=== PATIENT | female | born 1970 | race Caucasian/White ===

== ENCOUNTER 2018-11-18 11:10 | Emergency (ER) | payer MEDICAID ==
[~2018-11-18] VITALS: Ht 147.3 cm; Wt 43.0 kg
[~2018-11-18 11:10] MED LIST: ALBU18HF2 INH; ALBU8.5H8 IH; PRED20TA PO; SPIIN INH
[2018-11-18 11:24] VITALS: BP 100/67
--- NOTE | 2018-11-18 12:30 | NUR ---
PT HAS NURSE BLASTING HELPER AT BEDSIDE WITH PT, WILL HAVE TECH PLACE PT IN [place]OWN AND HAVE BELONGINGS LIST MADE AND LOCKED UP.
[2018-11-18 12:46] LABS: URINE HCG NEGATIVE (NEG)
[2018-11-18 12:48] LABS: CLARITY,URINE SLIGHTLY CLOUDY (Clear); COLOR,URINE YELLOW (Yellow); GLUCOSE, URINE NEGATIVE (Neg); KETONES,URINE NEGATIVE (Neg); LEUKOCYTE ESTERASE ,URINE MODERATE (Neg); NITRITES, URINE NEGATIVE (Neg); OCCULT BLOOD,URINE NEGATIVE (Neg); PH,URINE 5.5 (4.8-8.0); PROTEIN,URINE NEGATIVE (Neg); UROBILINOGEN,URINE 0.2 E.U/dL (0.2-1.0)
[2018-11-18 12:58] LABS: UA COLLECTION TYPE CLN CATCH MIDSTREAM; URINE AMPHETAMINE SCREEN POSITIVE (Neg); URINE BARBITUATE SCREEN NEGATIVE (Neg); URINE BENZODIAZEPINES SCREEN NEGATIVE (Neg); URINE CANNABINOID SCREEN NEGATIVE (Neg); URINE COCAINE SCREEN NEGATIVE (Neg); URINE METHADONE SCREEN NEGATIVE (Neg); URINE OPIATE SCREEN NEGATIVE (Neg); URINE PHENCYCLIDINE SCREEN NEGATIVE (Neg)
[2018-11-18 13:00] LABS: BACTERIA,URINE 1+ /HPF (Neg); RBC,URINE NONE SEEN /HPF (0-2)
[2018-11-18 13:01] LABS: MUCUS STRANDS MANY /LPF (Neg); SQUAMOUS EPITHELIAL CELL,UR MANY /LPF (FEW); YEAST FEW /HPF (NEGATIVE)
[2018-11-18 13:02] LABS: HYALINE CASTS 0-3 /LPF (NEGATIVE)
--- NOTE | 2018-11-18 13:45 | NUR ---
Ankush PETTY notified pt needs to be evaluated, and he informed me that they will be over in approx 30 min.
[2018-11-18] MEDS ORDERED: haloperidol lactate 5mg/ml inj IM ONE (14:10)
[2018-11-18] MEDS ORDERED: LORazepam 2 mg/ml vial IM ONE (14:10)
[2018-11-18] MEDS ORDERED: diphenhydrAMINE 50 mg/ml inj IM ONE (14:10)
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
[2018-11-18 14:20] LABS: BASOPHILS % (AUTO) 0.5 % (0-1); EOSINOPHILS # (AUTO) 0.1 X10'3 (0-0.9); EOSINOPHILS % (AUTO) 0.6 % (0-6); HEMATOCRIT 40.5 % (35.0-45.0); HEMOGLOBIN 13.8 g/dl (12.0-16.0); LYMPHOCYTES # (AUTO) 1.4 X10'3 (1.1-4.8); MEAN CORPUSCULAR HGB CONC 34.2 g/dL (33.0-36.5); MEAN CORPUSCULAR VOLUME 93.6 FL (78-98); MEAN PLATELET VOLUME 7.5 FL (7.4-10.4); MONOCYTES # (AUTO) 1.1 X10'3 (0-0.9); MONOCYTES % (AUTO) 10.6 % (2-12); NEUTROPHILS # (AUTO) 7.4 X10'3 (1.8-7.7); NEUTROPHILS % (AUTO) 74.3 % (42-75); PLATELET COUNT 242 X10'3 (140-440); RED BLOOD COUNT 4.32 X10'6 (4.20-5.60); RED CELL DISTRIBUTION WIDTH 13.5 % (11.5-14.5); WHITE BLOOD COUNT 9.9 X10'3 (4.5-11.0)
[2018-11-18 14:30] LABS: ALANINE AMINOTRANSFERASE 20 U/L (12-78); ALBUMIN 3.6 G/DL (3.4-5.0); ALBUMIN/GLOBULIN RATIO 0.9 (1.1-1.5); ALKALINE PHOSPHATASE 112 IU/L (46-116); ANION GAP 6 (8-16); ASPARTATE AMINO TRANSFERASE 14 U/L (10-37); BILIRUBIN,TOTAL 0.5 MG/DL (0.1-1.0); BLOOD UREA NITROGEN 6 MG/DL (7-18); BUN/CREATININE RATIO 8.6 (6.6-38.0); CALCIUM 9.3 MG/DL (8.5-10.1); CHLORIDE 102 MMOL/L (99-107); GLUCOSE 93 MG/DL (70-104); POTASSIUM 4.8 MMOL/L (3.5-5.1); SODIUM 136 MMOL/L (135-145); TOTAL CARBON DIOXIDE 28.2 MMOL/L (24-32); TOTAL PROTEIN 7.6 G/DL (6.4-8.2); eGFR 89 ML/MIN
[2018-11-18 14:37] LABS: ETHANOL < 0.010 GM/DL (0.0-0.010)
== END 2018-11-18 14:51 ==
LOC: ER 11:11
DX: F15.10 Other stimulant abuse, uncomplicated (principal); J44.9 Chronic obstructive pulmonary disease, unspecified; Z79.899 Other long term (current) drug therapy
CPT/HCPCS: 36415; 80053; 80305; 80320; 81001; 81025; 84443; 85025; 96372; 99283; J2060; J1200; J1630

== ENCOUNTER 2019-07-22 00:21 | Emergency (ER) | payer MEDICAID ==
[~2019-07-22] VITALS: Ht 147.3 cm; Wt 50.4 kg
[~2019-07-22 00:21] MED LIST changes: -PRED20TA PO
[2019-07-22] MEDS ORDERED: albuterol 2.5 MG/3 ML nebule NEB ONE (00:45)
[2019-07-22] MEDS ORDERED: albuterol 2.5 MG/3 ML nebule CONTNEB PRN (00:55)
[2019-07-22] MEDS ORDERED: methylPREDNISolone sod succ 125mg/2ml vial IV ONE (00:55)
[2019-07-22] MEDS: albuterol 2.5 MG/3 ML nebule CONTNEB PRN ×2 (01:03→02:29)
[2019-07-22 01:04] LABS: BASOPHILS # (AUTO) 0.1 X10'3 (0-0.2); BASOPHILS % (AUTO) 0.5 % (0-1); EOSINOPHILS % (AUTO) 0.3 % (0-6); HEMATOCRIT 38.8 % (35.0-45.0); HEMOGLOBIN 13.4 g/dl (12.0-16.0); LYMPHOCYTES # (AUTO) 1.2 X10'3 (1.1-4.8); LYMPHOCYTES % (AUTO) 8.9 % (21-51); MEAN CORPUSCULAR HEMOGLOBIN 33.3 PG (27.0-31.0); MEAN CORPUSCULAR HGB CONC 34.5 g/dL (33.0-36.5); MEAN CORPUSCULAR VOLUME 96.5 FL (78-98); MONOCYTES # (AUTO) 1.5 X10'3 (0-0.9); MONOCYTES % (AUTO) 11.2 % (2-12); NEUTROPHILS # (AUTO) 10.3 X10'3 (1.8-7.7); NEUTROPHILS % (AUTO) 79.1 % (42-75); PLATELET COUNT 203 X10'3 (140-440); RED BLOOD COUNT 4.02 X10'6 (4.20-5.60); RED CELL DISTRIBUTION WIDTH 13.6 % (11.5-14.5)
[2019-07-22 01:18] LABS: CHLORIDE 102 MMOL/L (99-107); GLUCOSE 149 MG/DL (70-104); POTASSIUM 3.7 MMOL/L (3.5-5.1); SODIUM 138 MMOL/L (135-145); TOTAL CARBON DIOXIDE 28.8 MMOL/L (24-32)
[2019-07-22 01:19] LABS: ALANINE AMINOTRANSFERASE 21 U/L (12-78); ALBUMIN 3.8 G/DL (3.4-5.0); ALBUMIN/GLOBULIN RATIO 0.9 (1.1-1.5); ALKALINE PHOSPHATASE 93 IU/L (46-116); ANION GAP 7 (8-16); ASPARTATE AMINO TRANSFERASE 16 U/L (10-37); BILIRUBIN,TOTAL 0.8 MG/DL (0.1-1.0); BLOOD UREA NITROGEN 9 MG/DL (7-18); BUN/CREATININE RATIO 9.6 (6.6-38.0); CALCIUM 8.6 MG/DL (8.5-10.1); CREATININE 0.94 MG/DL (0.40-0.90); MAGNESIUM 1.8 MG/DL (1.5-2.4); TOTAL PROTEIN 7.9 G/DL (6.4-8.2); eGFR 63 ML/MIN
[2019-07-22] MEDS ORDERED: ALBU6.7H9 INH (01:59)
[2019-07-22] MEDS ORDERED: PRED20TA PO (01:59)
[2019-07-22] MEDS ORDERED: TIOT18CA3 PO (02:09)
[2019-07-22 03:45] VITALS: BP 105/46
== END 2019-07-22 03:52 | disposition home or self-care (01) ==
LOC: ER 00:22
DX: J43.9 Emphysema, unspecified (principal); F17.200 Nicotine dependence, unspecified, uncomplicated; R19.7 Diarrhea, unspecified; Z79.899 Other long term (current) drug therapy
CPT/HCPCS: 36415; 71045; 80053; 83735; 85025; 87502; 87503; 93005; 94644; 94645; 96374; 99285; J2930; 94640; 94760

== ENCOUNTER 2019-07-24 07:33 | Emergency (ER) | payer MEDICAID ==
[~2019-07-24] VITALS: Ht 147.3 cm; Wt 49.5 kg
[~2019-07-24 07:33] MED LIST changes: +ALBU6.7H9 INH; +PRED20TA PO; +TIOT18CA3 PO
[2019-07-24] MEDS ORDERED: ipratropium/albuterol 3ml nebule ONE (07:41)
[2019-07-24] MEDS ORDERED: methylPREDNISolone sod succ 125mg/2ml vial IV ONE (07:45)
[2019-07-24] MEDS ORDERED: ipratropium/albuterol 3ml nebule NEB ONE ×2 (07:45→09:45)
[2019-07-24 08:02] LABS: BASOPHILS % (AUTO) 0.1 % (0-1); EOSINOPHILS % (AUTO) 0 % (0-6); HEMATOCRIT 33.9 % (35.0-45.0); HEMOGLOBIN 11.6 g/dl (12.0-16.0); LYMPHOCYTES # (AUTO) 0.8 X10'3 (1.1-4.8); LYMPHOCYTES % (AUTO) 7.8 % (21-51); MEAN CORPUSCULAR HEMOGLOBIN 33.1 PG (27.0-31.0); MEAN CORPUSCULAR HGB CONC 34.2 g/dL (33.0-36.5); MEAN CORPUSCULAR VOLUME 96.9 FL (78-98); MONOCYTES % (AUTO) 18.7 % (2-12); NEUTROPHILS # (AUTO) 7.7 X10'3 (1.8-7.7); NEUTROPHILS % (AUTO) 73.4 % (42-75); PLATELET COUNT 219 X10'3 (140-440); RED CELL DISTRIBUTION WIDTH 13.7 % (11.5-14.5); WHITE BLOOD COUNT 10.5 X10'3 (4.5-11.0)
[2019-07-24 08:18] LABS: ALANINE AMINOTRANSFERASE 87 U/L (12-78); ALBUMIN 3.6 G/DL (3.4-5.0); ALKALINE PHOSPHATASE 87 IU/L (46-116); ANION GAP 9 (8-16); ASPARTATE AMINO TRANSFERASE 59 U/L (10-37); BILIRUBIN,TOTAL 0.2 MG/DL (0.1-1.0); BLOOD UREA NITROGEN 17 MG/DL (7-18); CALCIUM 8.6 MG/DL (8.5-10.1); CHLORIDE 103 MMOL/L (99-107); CREATININE 0.85 MG/DL (0.40-0.90); GLUCOSE 103 MG/DL (70-104); POTASSIUM 3.8 MMOL/L (3.5-5.1); SODIUM 140 MMOL/L (135-145); TOTAL CARBON DIOXIDE 28.5 MMOL/L (24-32); TOTAL PROTEIN 7.1 G/DL (6.4-8.2); eGFR 71 ML/MIN
[2019-07-24 08:41] LABS: PLATELET ESTIMATE NORMAL; TOTAL CELLS COUNTED 100; TOXIC GRANULATION 1+
[2019-07-24] MEDS ORDERED: levoFLOXACIN-Levaquin 750MG/D5 150 ML IV ONE (09:35)
[2019-07-24] MEDS ORDERED: LEVO750T21 PO (09:35)
[2019-07-24 11:16] VITALS: BP 134/81
[2019-07-24] MEDS ORDERED: ALBU18HF2 INH (16:31)
[2019-07-24] MEDS ORDERED: PRAV20TA4 PO (16:31)
[2019-07-24] MEDS ORDERED: DIPH25CA46 PO (16:31)
[2019-07-24] MEDS ORDERED: NICO-687 TP (16:31)
[2019-07-24] MEDS ORDERED: ACLI400A3 PO (16:31)
[2019-07-24] MEDS ORDERED: ELVI1TAB3 PO (16:31)
[2019-07-24] MEDS ORDERED: IBUP-1985 PO (16:31)
[2019-07-25] MEDS ORDERED: BENZ-16 PO (14:02)
[2019-07-25] MEDS ORDERED: BUDE10.22 INH (14:02)
[2019-07-25] MEDS ORDERED: PRED10TA23 PO (14:02)
[2019-07-25] MEDS ORDERED: LEVO750T46 PO (14:02)
[2019-07-25] MEDS ORDERED: IPRA3AMP31 IH (14:02)
== END 2019-07-24 11:18 | disposition home or self-care (01) ==
LOC: ER 07:33
DX: J44.1 Chronic obstructive pulmonary disease with (acute) exacerbation (principal); F17.200 Nicotine dependence, unspecified, uncomplicated; Z79.899 Other long term (current) drug therapy
CPT/HCPCS: 36415; 71046; 80053; 83605; 83880; 84145; 84484; 85025; 87040; 93005; 94640; 96365; 96375; 99284; J1956; J2930; 94760

== ENCOUNTER 2019-07-24 15:30 | Inpatient (IN) | payer MEDICAID ==
[~2019-07-24] VITALS: Ht 147.3 cm; Wt 50.0 kg
[~2019-07-24 15:30] MED LIST changes: +LEVO750T21 PO
[2019-07-24] MEDS ORDERED: ipratropium/albuterol 3ml nebule NEB ONE (15:40)
[2019-07-24] MEDS ORDERED: IBUP-1985 PO (16:31)
[2019-07-24] MEDS ORDERED: DIPH25CA46 PO (16:31)
[2019-07-24] MEDS ORDERED: NICO-687 TP (16:31)
[2019-07-24] MEDS ORDERED: ACLI400A3 PO (16:31)
[2019-07-24] MEDS ORDERED: ALBU18HF2 INH (16:31)
[2019-07-24] MEDS ORDERED: PRAV20TA4 PO (16:31)
[2019-07-24] MEDS ORDERED: ELVI1TAB3 PO (16:31)
[2019-07-24] MEDS ORDERED: ondansetron/PF 4mg/2ml inj IV PRN (16:40)
[2019-07-24] MEDS ORDERED: acetaminophen 325mg tablet PO PRN ×2 (16:40)
[2019-07-24] MEDS ORDERED: methylPREDNISolone sod succ 125mg/2ml vial IV ONE (16:40)
[2019-07-24] MEDS ORDERED: potassium Cl 20 mEq SR tablet PO PRN ×2 (16:40)
[2019-07-24] MEDS ORDERED: acetaminophen 650mg rectal suppository RC PRN (16:40)
[2019-07-24] MEDS ORDERED: mag hydrox/Alum hydrox/simeth 30ml oral suspension PO PRN (16:40)
[2019-07-24] MEDS ORDERED: magnesium 4gm in 100ml NS 100 ML IV PRN (16:40)
[2019-07-24] MEDS ORDERED: potassium CL 10mEq/100ml bag 100 ML IV PRN ×2 (16:40)
[2019-07-24] MEDS ORDERED: HYDROcodone/acetaminophen 10/325mg tab PO PRN (16:40)
[2019-07-24] MEDS ORDERED: magnesium hydroxide 30ml (MOM) UD suspension PO PRN (16:40)
[2019-07-24] MEDS ORDERED: magnesium Cl slow-release 64mg tablet PO PRN (16:40)
[2019-07-24] MEDS ORDERED: diphenhydrAMINE 25mg capsule PO PRN (16:40)
[2019-07-24] MEDS ORDERED: morphine 2 MG/ML inj. syringe IV PRN ×2 (16:40)
[2019-07-24] MEDS ORDERED: HYDROcodone/acetaminophen 5mg/325mg tablet PO PRN (16:40)
[2019-07-24] MEDS ORDERED: magnesium 2GM in 50ml NS 50 ML IV PRN (16:40)
[2019-07-24] MEDS ORDERED: bisacodyl 10mg suppository rectal RC PRN (16:40)
[2019-07-24] MEDS ORDERED: iohexol 350MG/ML 100ml bottle IV ONE (16:55)
--- NOTE | 2019-07-24 17:00 | NUR ---
Patient in room ED 9. I have received report from ZEHRA KNAPP and had the opportunity to ask questions and assume patient care.
[2019-07-24] MEDS: normal saline 1000ml 1,000 ML IV SCH ×2 (17:30→21:51)
--- NOTE | 2019-07-24 17:40 | NUR ---
Pt to CT scan and then to 4016A via wheelchair
[2019-07-24 18:00] VITALS: BP 100/66
--- NOTE | 2019-07-24 18:15 | NUR ---
RECEIVED REPORT FROM DUKE KNAPP AND ASSUMED PATIENT CARE
--- NOTE | 2019-07-24 18:34 | NUR ---
Problems reprioritized. Patient report given, questions answered & plan of care reviewed with BERLIN KNAPP.
[2019-07-24] MEDS: ipratropium/albuterol 3ml nebule NEB SCH ×2 (19:28→23:03)
[2019-07-24] MEDS: K and/or MAG REPLACEMENT MC SCH (20:00)
[2019-07-24] MEDS: methylPREDNISolone sod succ 125mg/2ml vial IV SCH (20:49)
[2019-07-24] MEDS: heparin, porcine 5000 units/ml vial SQ SCH (20:49)
[2019-07-24 22:00] VITALS: BP 107/56
[2019-07-25] MEDS: methylPREDNISolone sod succ 125mg/2ml vial IV SCH ×3 (02:01→13:34)
[2019-07-25] MEDS: ipratropium/albuterol 3ml nebule NEB SCH ×4 (02:55→15:20)
[2019-07-25 06:00] VITALS: BP 107/63
[2019-07-25 06:15] LABS: BASOPHILS % (AUTO) 0.2 % (0-1); EOSINOPHILS % (AUTO) 0 % (0-6); HEMATOCRIT 33.3 % (35.0-45.0); HEMOGLOBIN 11.5 g/dl (12.0-16.0); LYMPHOCYTES # (AUTO) 0.9 X10'3 (1.1-4.8); MEAN CORPUSCULAR HEMOGLOBIN 33.4 PG (27.0-31.0); MEAN CORPUSCULAR HGB CONC 34.5 g/dL (33.0-36.5); MEAN CORPUSCULAR VOLUME 96.9 FL (78-98); MEAN PLATELET VOLUME 8.1 FL (7.4-10.4); MONOCYTES # (AUTO) 0.8 X10'3 (0-0.9); MONOCYTES % (AUTO) 10.2 % (2-12); NEUTROPHILS # (AUTO) 5.8 X10'3 (1.8-7.7); NEUTROPHILS % (AUTO) 77.6 % (42-75); PLATELET COUNT 220 X10'3 (140-440); RED BLOOD COUNT 3.44 X10'6 (4.20-5.60); RED CELL DISTRIBUTION WIDTH 13.3 % (11.5-14.5); WHITE BLOOD COUNT 7.5 X10'3 (4.5-11.0)
--- NOTE | 2019-07-25 06:25 | NUR ---
REPORT GIVEN TO JOEY KNAPP Addendum: 07/25/19 at 0629 by Jacey Stephens RN REPORT GIVEN TO JOSE ANTONIO KNAPP
--- NOTE | 2019-07-25 06:25 | NUR ---
Patient in room ORTHO 4016. I have received report from BERLIN KNAPP and had the opportunity to ask questions and assume patient care.
[2019-07-25 06:40] LABS: ALANINE AMINOTRANSFERASE 62 U/L (12-78); ALBUMIN 3.1 G/DL (3.4-5.0); ALBUMIN/GLOBULIN RATIO 0.9 (1.1-1.5); ALKALINE PHOSPHATASE 79 IU/L (46-116); ANION GAP 8 (8-16); ASPARTATE AMINO TRANSFERASE 19 U/L (10-37); BILIRUBIN,TOTAL 0.2 MG/DL (0.1-1.0); BLOOD UREA NITROGEN 15 MG/DL (7-18); BUN/CREATININE RATIO 18.5 (6.6-38.0); CALCIUM 8.7 MG/DL (8.5-10.1); CHLORIDE 102 MMOL/L (99-107); CHOL/HDL RATIO 2.6 (0.00-4.99); CHOLESTEROL 168 MG/DL (0-200); CREATININE 0.81 MG/DL (0.40-0.90); GLUCOSE 181 MG/DL (70-104); HDL CHOLESTEROL 65 MG/DL (35-60); LDL CHOLESTEROL 70 MG/DL (50-100); MAGNESIUM 2.1 MG/DL (1.5-2.4); PHOSPHORUS 3.7 MG/DL (2.3-4.5); POTASSIUM 3.8 MMOL/L (3.5-5.1); SODIUM 139 MMOL/L (135-145); TOTAL PROTEIN 6.7 G/DL (6.4-8.2); TRIGLYCERIDES 177 MG/DL (20-135); eGFR 75 ML/MIN
[2019-07-25] MEDS: heparin, porcine 5000 units/ml vial SQ SCH (07:26)
[2019-07-25] MEDS: K and/or MAG REPLACEMENT MC SCH (07:33)
[2019-07-25] MEDS ORDERED: nicotine 21mg patch - 24 hr TD SCH (08:00)
[2019-07-25] MEDS ORDERED: levoFLOXACIN-Levaquin 750MG/D5 150 ML IV SCH (08:00)
[2019-07-25] MEDS ORDERED: atorvastatin 10mg tablet PO SCH (08:00)
[2019-07-25 09:01] LABS: URINE HCG NEGATIVE (NEG)
[2019-07-25 09:03] LABS: CLARITY,URINE CLEAR (Clear); COLOR,URINE YELLOW (Yellow); GLUCOSE, URINE NEGATIVE (Neg); KETONES,URINE NEGATIVE (Neg); LEUKOCYTE ESTERASE ,URINE NEGATIVE (Neg); NITRITES, URINE NEGATIVE (Neg); OCCULT BLOOD,URINE LARGE (Neg); PH,URINE 6.5 (4.8-8.0); PROTEIN,URINE NEGATIVE (Neg); UROBILINOGEN,URINE 0.2 E.U/dL (0.2-1.0)
[2019-07-25 09:05] LABS: UA COLLECTION TYPE CLN CATCH MIDSTREAM
[2019-07-25 09:11] LABS: SQUAMOUS EPITHELIAL CELL,UR MANY /LPF (FEW)
[2019-07-25 09:12] LABS: BACTERIA,URINE FEW /HPF (Neg); WBC,URINE 0-4 /HPF (0-4)
[2019-07-25 09:13] LABS: URINE AMPHETAMINE SCREEN NEGATIVE (Neg); URINE BARBITUATE SCREEN NEGATIVE (Neg); URINE BENZODIAZEPINES SCREEN NEGATIVE (Neg); URINE CANNABINOID SCREEN NEGATIVE (Neg); URINE COCAINE SCREEN NEGATIVE (Neg); URINE METHADONE SCREEN NEGATIVE (Neg); URINE OPIATE SCREEN POSITIVE (Neg); URINE PHENCYCLIDINE SCREEN NEGATIVE (Neg)
[2019-07-25 10:00] VITALS: BP 114/68
--- NOTE | 2019-07-25 11:55 | NUR ---
Malnutrition consult received. Patient is eating well so far, 75-100% PO intake, good appetite, no edema, current weight is patient stated and 5 kg more than average documented weights including 45 kg in September 2018, BMI is average. No malnutrition at this time. Will continue to follow per protocol. Addendum: 07/25/19 at [address] Amended: Links added.
[2019-07-25] MEDS: normal saline 1000ml 1,000 ML IV SCH (12:38)
[2019-07-25] MEDS ORDERED: PRED10TA23 PO (14:02)
[2019-07-25] MEDS ORDERED: BENZ-16 PO (14:02)
[2019-07-25] MEDS ORDERED: IPRA3AMP31 IH (14:02)
[2019-07-25] MEDS ORDERED: BUDE10.22 INH (14:02)
[2019-07-25] MEDS ORDERED: LEVO750T46 PO (14:02)
--- NOTE | 2019-07-25 16:00 | NUR ---
PATIENT DISCHARGE SAFELY HOME WITH DAUGHTER. ALL BELONGINGS IN POSSESSION, INCLUDING HOME MEDICATIONS THAT WERE STORED IN PHARMACY. PRESCRIPTIONS CALLED TO LAURYN CHAIDEZ IN [facility] PER PATIENT REQUEST. A NEBULIZER MACHINE WAS DELIVERED TO PATIENT FOR HOME USE. PATIENT VERBALIZES UNDERSTANDING OF ALL DISCHARGE INSTRUCTIONS.
[2019-07-25] MEDS ORDERED: lactobacillus rhamnosus 10,000 MMU CELLS/CAPSULE PO SCH (20:00)
== END 2019-07-25 16:00 | disposition home or self-care (01) | DRG 139 ==
LOC: ER 15:30 → ED HOLD 16:38 → ORTHO 4S 18:50
PROVIDERS: ADMIT Family Medicine; ATTEND Family Medicine
PROC: B32T1ZZ Computerized Tomography (CT Scan) of Left Pulmonary Artery using Low Osmolar Contrast (ICD-10-PCS; principal; 2019-07-24)
PROC: B3201ZZ Computerized Tomography (CT Scan) of Thoracic Aorta using Low Osmolar Contrast (ICD-10-PCS; 2019-07-24)
PROC: B32S1ZZ Computerized Tomography (CT Scan) of Right Pulmonary Artery using Low Osmolar Contrast (ICD-10-PCS; 2019-07-24)
DX: J18.9 Pneumonia, unspecified organism (principal); J96.20 Acute and chronic respiratory failure, unspecified whether with hypoxia or hypercapnia; E78.5 Hyperlipidemia, unspecified; F15.10 Other stimulant abuse, uncomplicated; Z60.2 Problems related to living alone; J44.0 Chronic obstructive pulmonary disease with (acute) lower respiratory infection; F17.210 Nicotine dependence, cigarettes, uncomplicated; J44.1 Chronic obstructive pulmonary disease with (acute) exacerbation; K59.00 Constipation, unspecified; Z21 Asymptomatic human immunodeficiency virus [HIV] infection status; Z80.49 Family history of malignant neoplasm of other genital organs; Z91.19 Patient's noncompliance with other medical treatment and regimen; Z98.51 Tubal ligation status; Z71.6 Tobacco abuse counseling
CPT/HCPCS: 36415; 71275; 80053; 80061; 80305; 81001; 81025; 83036; 83605; 83735; 84100; 85025; 87040; 93306; 94640; 94760; 99285; G0378; J1644; J1956; J2930; J7030; Q9967

== ENCOUNTER 2019-08-02 09:08 | Emergency (ER) | payer MEDICAID ==
[~2019-08-02] VITALS: Ht 147.3 cm; Wt 50.0 kg
[~2019-08-02 09:08] MED LIST changes: +ACLI400A3 PO; -ALBU6.7H9 INH; -ALBU8.5H8 IH; +BENZ-16 PO; +BUDE10.22 INH; +DIPH25CA46 PO; +ELVI1TAB3 PO; +IPRA3AMP31 IH; -LEVO750T21 PO; +LEVO750T46 PO; +NICO-687 TP; +PRAV20TA4 PO; +PRED10TA23 PO; -PRED20TA PO; -SPIIN INH; -TIOT18CA3 PO
[2019-08-02 09:18] VITALS: BP 118/79
== END 2019-08-02 09:43 | disposition home or self-care (01) ==
LOC: ER 09:08
DX: G47.00 Insomnia, unspecified (principal); T38.0X5A Adverse effect of glucocorticoids and synthetic analogues, initial encounter; J44.9 Chronic obstructive pulmonary disease, unspecified; F17.200 Nicotine dependence, unspecified, uncomplicated; Z79.2 Long term (current) use of antibiotics; Z79.899 Other long term (current) drug therapy; Y92.89 Other specified places as the place of occurrence of the external cause
CPT/HCPCS: 99281

== ENCOUNTER 2020-10-19 21:35 | Emergency (ER) | payer MEDICAID ==
[~2020-10-19] VITALS: Ht 149.9 cm; Wt 57.7 kg
[~2020-10-19 21:35] MED LIST changes: -LEVO750T46 PO; -PRED10TA23 PO
[2020-10-19] MEDS ORDERED: ipratropium/albuterol 3ml nebule NEB ONE (22:30)
--- NOTE | 2020-10-19 22:49 | NUR ---
Pt. swabbed for covid, pt. reports she did not like the test and will not answer questions for an assessment.
[2020-10-19] MEDS ORDERED: methylPREDNISolone sod succ 125mg/2ml vial IV ONE (23:05)
[2020-10-19 23:11] LABS: BASOPHILS # (AUTO) 0.1 X10'3 (0-0.2); BASOPHILS % (AUTO) 0.5 % (0-1); EOSINOPHILS % (AUTO) 0.4 % (0-6); HEMOGLOBIN 13.2 g/dl (12.0-16.0); LYMPHOCYTES # (AUTO) 1.5 X10'3 (1.1-4.8); LYMPHOCYTES % (AUTO) 14.4 % (21-51); MEAN CORPUSCULAR HEMOGLOBIN 33.4 PG (27.0-31.0); MEAN CORPUSCULAR VOLUME 101.2 FL (78-98); MEAN PLATELET VOLUME 7.3 FL (7.4-10.4); MONOCYTES # (AUTO) 0.9 X10'3 (0-0.9); MONOCYTES % (AUTO) 8.9 % (2-12); NEUTROPHILS % (AUTO) 75.8 % (42-75); PLATELET COUNT 243 X10'3 (140-440); RED BLOOD COUNT 3.95 X10'6 (4.20-5.60); RED CELL DISTRIBUTION WIDTH 14.2 % (11.5-14.5); WHITE BLOOD COUNT 10.5 X10'3 (4.5-11.0)
[2020-10-19 23:35] LABS: ALANINE AMINOTRANSFERASE 34 U/L (12-78); ALBUMIN 3.6 G/DL (3.4-5.0); ALKALINE PHOSPHATASE 92 IU/L (46-116); ANION GAP 10 (8-16); ASPARTATE AMINO TRANSFERASE 17 U/L (10-37); BILIRUBIN,TOTAL 0.3 MG/DL (0.1-1.0); CALCIUM 9.2 MG/DL (8.5-10.1); CHLORIDE 104 MMOL/L (99-107); CREATININE 0.85 MG/DL (0.40-0.90); GLUCOSE 127 MG/DL (70-104); POTASSIUM 3.4 MMOL/L (3.5-5.1); SODIUM 140 MMOL/L (135-145); TOTAL CARBON DIOXIDE 26.2 MMOL/L (24-32); TOTAL PROTEIN 7.1 G/DL (6.4-8.2); eGFR 71 ML/MIN
[2020-10-19 23:50] LABS: BLOOD UREA NITROGEN 16 MG/DL (7-18); BUN/CREATININE RATIO 18.8 (6.6-38.0)
[2020-10-19] MEDS ORDERED: AZIT-63 PO (23:58)
[2020-10-19] MEDS ORDERED: PRED20TA PO (23:58)
[2020-10-20 00:18] VITALS: BP 123/77
== END 2020-10-20 00:21 | disposition home or self-care (01) ==
LOC: ER 21:36
DX: J44.1 Chronic obstructive pulmonary disease with (acute) exacerbation (principal); Z20.822 Contact with and (suspected) exposure to COVID-19; R05 Cough; R09.89 Other specified symptoms and signs involving the circulatory and respiratory systems; R06.02 Shortness of breath; E78.00 Pure hypercholesterolemia, unspecified; Z79.2 Long term (current) use of antibiotics; Z79.899 Other long term (current) drug therapy
CPT/HCPCS: 36415; 71045; 80053; 83605; 83735; 83880; 84145; 85025; 87040; 87635; 93005; 94640; 96374; 99285; C9803; J2930; 94760

== ENCOUNTER 2020-10-23 03:41 | Emergency (ER) | payer MEDICAID ==
[~2020-10-23] VITALS: Ht 149.9 cm; Wt 57.7 kg
[~2020-10-23 03:41] MED LIST changes: +AZIT-63 PO; +PRED20TA PO
[2020-10-23 03:43] VITALS: BP 144/80
[2020-10-23] MEDS ORDERED: predniSONE 20 mg tablet PO ONE (03:55)
[2020-10-23] MEDS ORDERED: albuterol 2.5 MG/3 ML nebule NEB ONE (03:55)
[2020-10-23] MEDS ORDERED: ALBU8HFA PO (04:58)
[2020-10-23] MEDS ORDERED: PRED20TA PO (04:58)
== END 2020-10-23 05:17 | disposition home or self-care (01) ==
LOC: ER 03:41
DX: J44.1 Chronic obstructive pulmonary disease with (acute) exacerbation (principal); E78.00 Pure hypercholesterolemia, unspecified; Z79.899 Other long term (current) drug therapy
CPT/HCPCS: 93005; 94640; 99283; J7512; 94760

== ENCOUNTER 2020-10-24 08:13 | Emergency (ER) | payer MEDICAID ==
[~2020-10-24] VITALS: Ht 149.9 cm; Wt 57.7 kg
[~2020-10-24 08:13] MED LIST changes: +ALBU8HFA PO
[2020-10-24] MEDS ORDERED: ipratropium/albuterol 3ml nebule NEB ONE (09:30)
[2020-10-24] MEDS ORDERED: albuterol 2.5 MG/3 ML nebule NEB ONE ×2 (09:30→10:20)
--- NOTE | 2020-10-24 10:04 | NUR ---
Per EDMD request, pt trialling off 02 as she is not on it at home.
[2020-10-24 11:04] VITALS: BP 141/90
== END 2020-10-24 11:39 | disposition home or self-care (01) ==
LOC: ER 08:13
DX: J44.1 Chronic obstructive pulmonary disease with (acute) exacerbation (principal); Z20.822 Contact with and (suspected) exposure to COVID-19; R06.02 Shortness of breath; E78.00 Pure hypercholesterolemia, unspecified; J44.9 Chronic obstructive pulmonary disease, unspecified; K21.9 Gastro-esophageal reflux disease without esophagitis; Z71.6 Tobacco abuse counseling; Z79.2 Long term (current) use of antibiotics; Z79.899 Other long term (current) drug therapy
CPT/HCPCS: 71045; 87635; 94640; 99285; C9803; 94760

== ENCOUNTER 2020-10-28 14:09 | Emergency (ER) | payer MEDICAID ==
[~2020-10-28] VITALS: Ht 149.9 cm; Wt 55.5 kg
[2020-10-28] MEDS ORDERED: methylPREDNISolone sod succ 125mg/2ml vial IV ONE (15:05)
[2020-10-28] MEDS ORDERED: normal saline 1000ML IV soln IVB ONE (15:05)
[2020-10-28] MEDS ORDERED: iohexol 350MG/ML 100ml bottle IV ONE (15:18)
[2020-10-28 15:27] LABS: BASOPHILS % (AUTO) 0.1 % (0-1); EOSINOPHILS % (AUTO) 0 % (0-6); HEMATOCRIT 38.2 % (35.0-45.0); HEMOGLOBIN 12.6 g/dl (12.0-16.0); LYMPHOCYTES # (AUTO) 1.1 X10'3 (1.1-4.8); LYMPHOCYTES % (AUTO) 11.3 % (21-51); MEAN CORPUSCULAR HEMOGLOBIN 33.4 PG (27.0-31.0); MEAN CORPUSCULAR HGB CONC 32.9 g/dL (33.0-36.5); MEAN CORPUSCULAR VOLUME 101.3 FL (78-98); MEAN PLATELET VOLUME 7.5 FL (7.4-10.4); MONOCYTES # (AUTO) 0.9 X10'3 (0-0.9); MONOCYTES % (AUTO) 8.9 % (2-12); NEUTROPHILS # (AUTO) 7.8 X10'3 (1.8-7.7); NEUTROPHILS % (AUTO) 79.7 % (42-75); PLATELET COUNT 250 X10'3 (140-440); RED BLOOD COUNT 3.77 X10'6 (4.20-5.60); RED CELL DISTRIBUTION WIDTH 14.3 % (11.5-14.5); WHITE BLOOD COUNT 9.8 X10'3 (4.5-11.0)
[2020-10-28 15:46] LABS: D-DIMER 0.23 MG/L FEU (0-0.50); PARTIAL THROMBOPLASTIN TIME 21 SECONDS (22-32)
[2020-10-28 15:53] LABS: ALANINE AMINOTRANSFERASE 48 U/L (12-78); ALBUMIN 3.4 G/DL (3.4-5.0); ALKALINE PHOSPHATASE 80 IU/L (46-116); ANION GAP 10 (8-16); ASPARTATE AMINO TRANSFERASE 30 U/L (10-37); BILIRUBIN,TOTAL 0.2 MG/DL (0.1-1.0); BLOOD UREA NITROGEN 18 MG/DL (7-18); CALCIUM 8.9 MG/DL (8.5-10.1); CHLORIDE 104 MMOL/L (99-107); GLUCOSE 219 MG/DL (70-104); POTASSIUM 3.7 MMOL/L (3.5-5.1); SODIUM 141 MMOL/L (135-145); TOTAL CARBON DIOXIDE 27.2 MMOL/L (24-32); TOTAL PROTEIN 6.7 G/DL (6.4-8.2); eGFR 66 ML/MIN
[2020-10-28] MEDS ORDERED: magnesium oxide 400mg tablet PO ONE (16:40)
[2020-10-28] MEDS ORDERED: predniSONE 20 mg tablet PO ONE (16:40)
[2020-10-28] MEDS ORDERED: albuterol 2.5 MG/3 ML nebule NEB ONE (16:40)
[2020-10-28] MEDS ORDERED: PRED20TA PO (16:45)
[2020-10-28 16:57] VITALS: BP 143/69
== END 2020-10-28 16:59 | disposition home or self-care (01) ==
LOC: ER 14:10
DX: J44.1 Chronic obstructive pulmonary disease with (acute) exacerbation (principal); E78.00 Pure hypercholesterolemia, unspecified; K21.9 Gastro-esophageal reflux disease without esophagitis; F41.9 Anxiety disorder, unspecified; F17.210 Nicotine dependence, cigarettes, uncomplicated; Z79.899 Other long term (current) drug therapy
CPT/HCPCS: 36415; 71045; 71275; 80053; 83605; 83880; 84484; 85025; 85379; 85610; 85730; 87040; 93005; 94640; 96361; 96374; 99285; J2930; J7030; J7512; Q9967; 94760

== ENCOUNTER 2020-10-29 23:35 | Emergency (ER) | payer MEDICAID ==
[~2020-10-29] VITALS: Ht 149.9 cm; Wt 53.0 kg
[2020-10-29] MEDS ORDERED: acetaminophen 325mg tablet PO ONE (23:50)
[2020-10-30 00:06] VITALS: BP 152/105
== END 2020-10-30 00:18 | disposition home or self-care (01) ==
LOC: ER 23:35
DX: J04.0 Acute laryngitis (principal); R06.02 Shortness of breath; R05 Cough; R07.0 Pain in throat; F41.9 Anxiety disorder, unspecified; E78.00 Pure hypercholesterolemia, unspecified; J44.9 Chronic obstructive pulmonary disease, unspecified; K21.9 Gastro-esophageal reflux disease without esophagitis; Z79.2 Long term (current) use of antibiotics; Z79.899 Other long term (current) drug therapy
CPT/HCPCS: 99283

== ENCOUNTER 2021-03-31 21:15 | Emergency (ER) | payer MEDICAID ==
[~2021-03-31] VITALS: Ht 149.9 cm; Wt 55.5 kg
[~2021-03-31 21:15] MED LIST changes: -ALBU8HFA PO; -AZIT-63 PO; +DIPH-1055 PO; -DIPH25CA46 PO; -PRED20TA PO
[2021-03-31 21:23] VITALS: BP 133/84
[2021-04-01] MEDS ORDERED: HYDROcodone/acetaminophen 5mg/325mg tablet PO ONE (00:45)
[2021-04-01] MEDS ORDERED: orphenadrine citrate 60mg/2ml inj. IM ONE (00:50)
== END 2021-04-01 03:30 | disposition home or self-care (01) ==
LOC: ER 21:15
DX: S22.080A Wedge compression fracture of T11-T12 vertebra, initial encounter for closed fracture (principal); M54.5 Low back pain; G89.29 Other chronic pain; M54.6 Pain in thoracic spine; E78.00 Pure hypercholesterolemia, unspecified; J44.9 Chronic obstructive pulmonary disease, unspecified; K21.9 Gastro-esophageal reflux disease without esophagitis; F41.9 Anxiety disorder, unspecified; Z72.89 Other problems related to lifestyle; Z79.899 Other long term (current) drug therapy; X58.XXXA Exposure to other specified factors, initial encounter; Y93.89 Activity, other specified; Y92.89 Other specified places as the place of occurrence of the external cause; Y99.8 Other external cause status
CPT/HCPCS: 72128; 72131; 96372; 99284; J2360

== ENCOUNTER 2022-09-04 21:15 | Emergency (ER) | payer BC, MEDICAID ==
[~2022-09-04] VITALS: Ht 177.8 cm; Wt 50.9 kg
[~2022-09-04 21:15] MED LIST changes: +ACLI400A2 PO; -ACLI400A3 PO
[2022-09-04 22:14] LABS: BASOPHILS % (AUTO) 0.2 % (0-1); EOSINOPHILS % (AUTO) 0.1 % (0-6); HEMATOCRIT 34.3 % (35.0-45.0); HEMOGLOBIN 11.2 g/dl (12.0-16.0); LYMPHOCYTES # (AUTO) 1.6 X10'3 (1.1-4.8); LYMPHOCYTES % (AUTO) 14.3 % (21-51); MEAN CORPUSCULAR HEMOGLOBIN 29.8 PG (27.0-31.0); MEAN CORPUSCULAR HGB CONC 32.8 g/dL (33.0-36.5); MEAN CORPUSCULAR VOLUME 91.1 FL (78-98); MEAN PLATELET VOLUME 7.2 FL (7.4-10.4); MONOCYTES # (AUTO) 1.3 X10'3 (0-0.9); MONOCYTES % (AUTO) 11.6 % (2-12); NEUTROPHILS % (AUTO) 73.8 % (42-75); PLATELET COUNT 287 X10'3 (140-440); RED BLOOD COUNT 3.77 X10'6 (4.20-5.60); WHITE BLOOD COUNT 10.9 X10'3 (4.5-11.0)
[2022-09-04 22:21] LABS: ALANINE AMINOTRANSFERASE 26 U/L (12-78); ALBUMIN 3.4 G/DL (3.4-5.0); ALKALINE PHOSPHATASE 104 IU/L (46-116); ANION GAP 8 (8-16); ASPARTATE AMINO TRANSFERASE 14 U/L (10-37); BILIRUBIN,TOTAL 0.2 MG/DL (0.1-1.0); BLOOD UREA NITROGEN 10 MG/DL (7-18); BUN/CREATININE RATIO 15.6 (6.6-38.0); CALCIUM 8.8 MG/DL (8.5-10.1); CHLORIDE 107 MMOL/L (99-107); CREATININE 0.64 MG/DL (0.40-0.90); GLUCOSE 120 MG/DL (70-104); POTASSIUM 3.8 MMOL/L (3.5-5.1); SODIUM 142 MMOL/L (135-145); TOTAL CARBON DIOXIDE 27.4 MMOL/L (24-32); TOTAL PROTEIN 6.7 G/DL (6.4-8.2); eGFR > 90 ML/MIN
[2022-09-04] MEDS ORDERED: LORazepam 1 MG tablet PO ONE (22:50)
[2022-09-04] MEDS ORDERED: diphenhydrAMINE 25mg capsule PO ONE (22:50)
[2022-09-04] MEDS ORDERED: acetaminophen 325mg tablet PO ONE (22:55)
[2022-09-04 23:28] VITALS: BP 102/66
== END 2022-09-04 23:32 | disposition home or self-care (01) ==
LOC: ER 21:16
DX: R07.9 Chest pain, unspecified (principal); E78.00 Pure hypercholesterolemia, unspecified; J44.9 Chronic obstructive pulmonary disease, unspecified; K21.9 Gastro-esophageal reflux disease without esophagitis; F41.9 Anxiety disorder, unspecified; F15.10 Other stimulant abuse, uncomplicated; Z79.899 Other long term (current) drug therapy; Z79.1 Long term (current) use of non-steroidal anti-inflammatories (NSAID); Z79.2 Long term (current) use of antibiotics
CPT/HCPCS: 36415; 71045; 80053; 83880; 84484; 85025; 93005; 99285; Q0163

== ENCOUNTER 2022-10-18 18:09 | Emergency (ER) | payer BC, MEDICAID ==
[~2022-10-18] VITALS: Ht 147.3 cm; Wt 51.4 kg
[2022-10-18 18:26] VITALS: BP 131/82
[2022-10-18] MEDS ORDERED: AZIT-31 PO (19:10)
[2022-10-18] MEDS ORDERED: PRED10TA PO (19:10)
[2022-10-18] MEDS ORDERED: predniSONE 20 mg tablet PO ONE (19:15)
[2022-10-18] MEDS ORDERED: albuterol 2.5 MG/3 ML nebule NEB ONE (19:15)
== END 2022-10-18 20:15 | disposition home or self-care (01) ==
LOC: ER 18:10
DX: J44.1 Chronic obstructive pulmonary disease with (acute) exacerbation (principal); R05.1 Acute cough; J02.9 Acute pharyngitis, unspecified; E78.00 Pure hypercholesterolemia, unspecified; F15.10 Other stimulant abuse, uncomplicated; F41.9 Anxiety disorder, unspecified; Z79.899 Other long term (current) drug therapy; Z79.1 Long term (current) use of non-steroidal anti-inflammatories (NSAID); Z79.2 Long term (current) use of antibiotics
CPT/HCPCS: 71045; 94640; 99283; J7512; 94760

== ENCOUNTER 2025-05-31 09:56 | Day surgery (SDC) | payer BC, MEDICAID ==
--- NOTE | 2025-05-25 14:51 | ELECTROCARDIOGRAPH REPORT ---
[facility] Test Date: 2025-05-25 Test Time: 14:49:18 Pat Name: SHANE DECKER Department: [facility]-PRE-OP Patient ID: [id number] Room: Gender: F Clinical Project Leader: abdi : 1970 Requested By: BRITTANI CORRAL Order Number: [id number] Reading MD: Dr. JONATAN Castillo Measurements Intervals [place] Rate: 91 P: 78 DE: 120 QRS: 73 QRSD: 83 T: 64 QT: 380 QTc: 468 Interpretive Statements Sinus rhythm Electronically Signed On 05-25-2025 18:50:[address] JONATAN Castillo Please click the below link to view image of tracing.
[2025-05-25 15:00] LABS: MEAN PLATELET VOLUME 7.3 FL (7.4-10.4); PRE OP HEMATOCRIT 38.4 % (35.0-45.0); PRE OP HEMOGLOBIN 13.0 g/dL (12.0-16.0); PRE OP PLATELET COUNT 271 X10'3 (140-440); PRE OP WHITE BLOOD COUNT 8.5 10'3 (4.8-10.8); RED CELL DISTRIBUTION WIDTH 14.1 % (11.5-14.5)
[2025-05-25 15:18] LABS: CREATININE 0.89 MG/DL (0.40-0.90); PRE OP ALT 29 U/L (30-65); PRE OP ANION GAP 6 (8-16); PRE OP AST 19 U/L (10-37); PRE OP BILIRUB, TOTAL 0.3 MG/DL (0.0-1.0); PRE OP POTASSIUM 3.8 MMOL/L (3.4-5.1); PRE OP SODIUM 140 MMOL/L (135-145); TOTAL CARBON DIOXIDE 31.8 MMOL/L (24-32); eGFR 66 ML/MIN
[2025-05-25 15:22] LABS: PRE OP GLUCOSE 51 MG/DL (70-104)
[~2025-05-31] VITALS: Ht 149.9 cm; Wt 55.3 kg
[2025-05-31] VITALS (7 sets, daily range): BP systolic 113–152; BP diastolic 62–96; PULSE 82–89; RESP 11–18; TEMP 97.4; O2SAT 99–100
[2025-05-31] MEDS: ceFAZolin 2gm/dext,iso 50mL 50 ML IV ONE (05:30)
[~2025-05-31 09:56] MED LIST changes: -ACLI400A2 PO; +ATOR40TA PO; -BENZ-16 PO; -BUDE10.22 INH; +CETI10TA19 PO; -DIPH-1055 PO; -ELVI1TAB3 PO; +FLUT1BLS4 INH; +HYDR50TA65 PO; -IPRA3AMP31 IH; -NICO-687 TP; -PRAV20TA4 PO; +QUET-1 PO; +TIOT4MIS2 PO
[2025-05-31] MEDS: ringers solution, lacted 1,000 ML IV SCH (10:29)
[2025-05-31] MEDS ORDERED: propofol inj 20 ML IV ONE (11:10)
--- NOTE | 2025-05-31 13:39 | OPERATIVE REPORT ---
Operative Report Providers to ~ Date of Procedure: May 31, 2025 Pre-Operative Diagnosis: Right wrist carpal tunnel syndrome Post-Operative Diagnosis SAME as PRE-Op Procedure Performed Right wrist endoscopic carpal tunnel release Surgeon: Geovany Villagomez MD Helpdesk Administrator None Anesthesiologist: Sher Garcia Type of Anesthesia: Other Findings: Estimated Blood Loss: None Specimen Removed: None Description of Procedure: The patient is a 54-year-old woman with right carpal tunnel syndrome refractory to nonsurgical treatment. Surgery is indicated to relieve symptoms. Risks and benefits were discussed with the patient and the patient agreed to proceed. Once in the operating room the right arm was prepped and draped in usual manner. Local anesthetic was infiltrated proximal to the volar wrist crease after time- out procedure. The tourniquet was elevated on the forearm to 250 mmHg A distally-based forearm fascia flap was raised and the carpal tunnel scope was pl aced in the canal in line with the radial side of the ring finger. The median nerve was protected while the scope was pressed firmly up against the underside of the transverse carpal ligament. The blade was deployed and the scope was drawn proximally dividing the ligament under direct vision. Scope was removed the flap was transected and the fascia proximal to that was divided a short distance using the blunt scissor tips. The incision was irrigated and closed nylon suture. A sterile dressing was then applied. The tourniquet was released the hand perfused well. The patient was taken to the recovery room in stable condition and tolerated the procedure well. GEOVANY VILLAGOMEZ Jr., MD May 31, 2025 13:39
== END 2025-05-31 12:06 | disposition home or self-care (01) ==
LOC: PAS 09:56
PROVIDERS: ATTEND Orthopaedic Surgery Hand Surgery
DX: G56.01 Carpal tunnel syndrome, right upper limb (principal); B20 Human immunodeficiency virus [HIV] disease; E78.00 Pure hypercholesterolemia, unspecified; F17.210 Nicotine dependence, cigarettes, uncomplicated; J44.89 Other specified chronic obstructive pulmonary disease; Z85.41 Personal history of malignant neoplasm of cervix uteri; Z86.11 Personal history of tuberculosis
CPT/HCPCS: 29848; 36415; 80053; 82948; 85025; 93005; J2704; J7030; J7120; Z7506; Z7512; A4215; A6449; A7000

== ENCOUNTER 2025-06-28 06:20 | Day surgery (SDC) | payer BC, MEDICAID ==
[2025-06-14 13:57] LABS: MEAN PLATELET VOLUME 7.2 FL (7.4-10.4); PRE OP HEMATOCRIT 38.3 % (35.0-45.0); PRE OP HEMOGLOBIN 13.0 g/dL (12.0-16.0); PRE OP PLATELET COUNT 281 X10'3 (140-440); PRE OP WHITE BLOOD COUNT 9.3 10'3 (4.8-10.8); RED CELL DISTRIBUTION WIDTH 14.0 % (11.5-14.5)
[2025-06-14 14:06] LABS: CREATININE 0.60 MG/DL (0.40-0.90); PRE OP ALT 34 U/L (30-65); PRE OP ANION GAP 10 (8-16); PRE OP AST 21 U/L (10-37); PRE OP BILIRUB, TOTAL 0.3 MG/DL (0.0-1.0); PRE OP GLUCOSE 99 MG/DL (70-104); PRE OP POTASSIUM 3.9 MMOL/L (3.4-5.1); PRE OP SODIUM 142 MMOL/L (135-145); TOTAL CARBON DIOXIDE 26.3 MMOL/L (24-32); eGFR > 90 ML/MIN
[~2025-06-28] VITALS: Ht 147.3 cm; Wt 55.3 kg
[2025-06-28] MEDS: ceFAZolin 2gm/dext,iso 50mL 50 ML IV ONE (05:30)
[~2025-06-28 06:20] MED LIST changes: +ALBU2.5V10; +CHOL20004 PO
[2025-06-28] MEDS ORDERED: LIDOcaine 2% (20mg/ml) 5ml vial ONE ×2 (06:41→06:46)
[2025-06-28] MEDS ORDERED: BUPIVAcaine/PF 2.5mg/ml (0.25%) 10ml vial ONE (06:42)
[2025-06-28] MEDS: ringers solution, lacted 1,000 ML IV SCH (07:24)
[2025-06-28] MEDS ORDERED: propofol inj 20 ML IV ONE (07:50)
[2025-06-28] MEDS ORDERED: midazolam 1 mg/ML 2ml injection ONE (07:51)
[2025-06-28] MEDS: BUPIVAcaine/PF 2.5mg/ml (0.25%) 10ml vial IJ ONE (07:59)
[2025-06-28] MEDS: LIDOcaine 2% (20mg/ml) 5ml vial SQ ONE (07:59)
[2025-06-28 08:12] VITALS: BP 115/74; PULSE 92; RESP 14; O2SAT 100
[2025-06-28 08:25] VITALS: BP 120/81; PULSE 80; RESP 22; O2SAT 100
[2025-06-28 08:35] VITALS: BP 118/81; PULSE 74; RESP 20; O2SAT 100
[2025-06-28] MEDS: HYDROcodone/acetaminophen 5mg/325mg tablet PO STA (08:40)
[2025-06-28 08:45] VITALS: BP 129/89; PULSE 78; RESP 14; O2SAT 100
[2025-06-28 08:55] VITALS: PULSE 82; RESP 12; O2SAT 100
[2025-06-28] MEDS: ketorolac trometh 30MG/ML vial 30 MG/ML VIAL IV STA (08:55)
--- NOTE | 2025-06-28 16:51 | OPERATIVE REPORT ---
Operative Report Providers to ~ Date of Procedure: Jun 28, 2025 Pre-Operative Diagnosis: left carpal tunnel syndrome Post-Operative Diagnosis SAME as PRE-Op Procedure Performed left endoscopic carpal tunnel release Surgeon: Gwendolyn Villagomez MD Mill Stenciler none Anesthesiologist: Sher Garcia Type of Anesthesia: Other Findings: Estimated Blood Loss: nonne Specimen Removed: none Description of Procedure: INDICATIONS: This patient is a 54 year old with left carpal tunnel syndrome refractory to conservative treatment. Surgery is indicated for relief of symptoms. PROCEDURE: After the block was given the arm was prepped and draped in the usual manner. A transverse incision was made at the proximal wrist crease, ulnar to the palmaris longus. Blunt dissection was performed through deeper tissues until the forearm fascia was encountered. A distally-based U-shaped flap was raised in the forearm fascia. The carpal tunnel was entered with the synovial dissector used to clear off the underside of the transverse carpal ligament. The scope was then placed in the wrist, and the underside of the ligament was clearly visualized. Under direct vision through the scope, the cutting blade was raised, and the ligament was divided from distal to proximal. The ligament edges retracted, denoting complete release of the ligament. The scope was removed and the forearm fascia proximal to the incision was released using blunt Metzenbaum scissors. The incision was irrigated and the small bleeders were cauterized, and then closed with 5-O nylon sutures and sterile strips. The tourniquet was released and the hand perfused well. Marcaine was injected and a sterile dressing was applied. The patient was then taken to the recovery room in stable condition. The patient tolerated the procedure well. BRITTANI VILLAGOMEZ Jr., MD Jun 28, 2025 16:51
== END 2025-06-28 09:12 | disposition home or self-care (01) ==
LOC: PAS 06:20
PROVIDERS: ATTEND Orthopaedic Surgery Hand Surgery
DX: G56.03 Carpal tunnel syndrome, bilateral upper limbs (principal); E78.00 Pure hypercholesterolemia, unspecified; F17.210 Nicotine dependence, cigarettes, uncomplicated; F41.9 Anxiety disorder, unspecified; G43.909 Migraine, unspecified, not intractable, without status migrainosus; J44.89 Other specified chronic obstructive pulmonary disease; M47.22 Other spondylosis with radiculopathy, cervical region; M51.16 Intervertebral disc disorders with radiculopathy, lumbar region; M48.061 Spinal stenosis, lumbar region without neurogenic claudication; Z85.41 Personal history of malignant neoplasm of cervix uteri
CPT/HCPCS: 29848; 36415; 80053; 82948; 85025; J1885; J2003; J2250; J2704; J3490; J7030; J7120; Z7506; Z7512; A4215; A6449; A7000